=== PATIENT | female | born 1930 | race Caucasian/White ===

== ENCOUNTER 2016-11-07 16:00 | Emergency (ER) | payer MEDICARE ==
[~2016-11-07] VITALS: Ht 160 cm; Wt 63.6 kg
[~2016-11-07 16:00] MED LIST: AMLO-39 PO; AMLO2.5T2 PO; ASAEC PO; BENA40TA60 PO; CHOL200035 PO
[2016-11-07 16:17] VITALS: BP 138/76; PULSE 91; RESP 16; O2SAT 96
--- NOTE | 2016-11-07 16:29 | ED.REPORT ---
HPI-Extremity Problem Lower Date of Service Nov 07, 2016 ED Provider: Adarsh Ansari MD Patient is an 86 year old female with a history of hypertension and aortic stenosis who presents to the ED via EMS due to a fall. Associated symptoms include left ankle pain. The patient states that she was unable to bear weight on the leg or walk after the accident. She denies head pain, losing consciousness, neck pain or syncope. The patient states that she stepped off a stair wrong, twisted her ankle and then fell on top of the ankle. Per the patient's daughter, there was no "pop" heard or felt. Nursing Notes Stated Complaint: GLF Chief Complaint: Extremity Trauma Nursing Notes Reviewed: Yes Allergies: Coded Allergies: Penicillins (Verified Allergy, Unknown, RASH, 11/07/16) Sulfa (Sulfonamide Antibiotics) (Verified Allergy, Unknown, RASH, 11/07/16) ibuprofen (Verified Allergy, Unknown, POSSIBLY, 11/07/16) Scheduled AmLODIPine-Expunged Drug, Do Not Renew! (AmLODIPine-Expunged Drug, Do Not Renew! ) 2.5 Mg Tablet 2.5 MG PO DAILY AmLODIPine-Expunged Drug, Do Not Renew! (AmLODIPine-Expunged Drug, Do Not Renew! ) 5 Mg Tablet 5 MG PO DAILY Aspirin-Expunged Drug, Do Not Renew! (Aspirin EC-Expunged Drug, Do Not Renew!) 325 Mg Tablet 325 MG PO DAILY Benazepril-Expunged Drug, Do Not Renew! (Lotensin-Expunged Drug, Do Not Renew!) 40 Mg Tablet 40 MG PO DAILY CHOLECALCIFEROL-Expunged Drug, Do Not Renew! (VITAMIN D3-Expunged Drug, Do Not Renew!) 2,000 Unit Capsule 1,000 UNIT PO DAILY General Time Seen by MD: 16:28 Chief Complaint Ankle injury left Hx Obtained From: Patient Arrived By: Ambulance Onset Occurred: Just prior to arrival Symptom Duration: Since onset Caused by: Fall on ground Context: Occurred at: Home injury Location: : Ankle left Quality: Painful Severity: Current: Moderate Associated with: Reports: Unable to bear weight, Unable to walk, Denies: "Pop" felt or heard, Neck pain, Syncope Recent Healthcare: Recent doctor visit Similar Sx Previous: No Past Medical History Past Medical History aortic stenosis Reports: Hypertension Past Surgical History Denies Smoking History Unknown if Ever Smoker Social History Other Social History: Good social support Ambulatory Status Independent Review of Systems Review of Systems Note: +unable to bear weight Constitutional: Denies: Chills, Fever Musculoskeletal: Reports: Extremity pain (left ankle) Skin: Denies Itching, Denies Rash Neurologic: Reports: Problem walking, Denies: Headache, Numbness, Syncope, Weakness Complete sys rev & neg: except as marked. Respiratory: Denies: Non-productive cough, Shortness of breath Physical Exam Initial Vital Signs Vital Signs (First) Date Time Temp Pulse Resp B/P Pulse Ox O2 Delivery O2 Flow Rate FiO2 11/07/16 16:17 36.2 91 16 138/76 96 Room Air Initial VS: Reviewed Lower Extremity / Pelvis / MS: Atraumatic, Neurologic intact, Vascular intact tender left proximal fibula Ankle / Foot: Neurologic intact, Vascular intact normal sensation good dp pulses tender medial malleolus no obvious defomity no crepitus tender 5th metatarsal General/Constitutional: Awake, Alert Respiratory / Chest: Atraumatic, No respiratory distress Skin: Atraumatic, Color NL, No rash, Warm, Dry Neurologic: Oriented X3, Speech NL, No motor deficits, No sensory deficits Head / Eyes: Atraumatic, Normocephalic, PERRL, EOMI Upper Extremity / MS: Atraumatic, Inspection NL Psychiatric: Affect NL, Mood NL Interpretation & Diagnostics Lab Results Interpretation Test 11/07/16 17:30 Hold Purple Top Tube Received (Received) Hold Blue Top Tube Received (Received) Hold [place] Top Tube Received (Received) X-Ray Interpretation Xray Interpretation: IMPRESSION: No acute bony injury to the left foot. Dictated by: Abhijit Velázquez M.D. on 11/07/2016 at 17:15 Approved by: Abhijit Velázquez M.D. on 11/07/2016 at 17:15 X-Ray Ordered: Foot left Interpretation / Wet Read by: Interpret - Radiologist Xray Interpretation: IMPRESSION: Minimally displaced distal fibular spiral fracture at the level of the syndesmosis. Dictated by: Abhijit Velázquez M.D. on 11/07/2016 at 17:12 Approved by: Abhijit Velázquez M.D. on 11/07/2016 at 17:13 X-Ray Ordered: Tibia fibula left Interpretation / Wet Read by: Interpret - Radiologist Xray Interpretation: IMPRESSION: Minimally displaced distal fibular spiral fracture at the level of the syndesmosis, consistent with stage II supination-external rotation mechanism of injury. Dictated by: Abhijit Velázquez M.D. on 11/07/2016 at 17:13 Approved by: Abhijit Velázquez M.D. on 11/07/2016 at 17:14 X-Ray Ordered: Ankle left Interpretation / Wet Read by: Interpret - Radiologist Procedures Splint Application - Fx Mgt Time: 18:01 Procedure Performed by: Nurse Precise Anatomic Location: left ankle Type of Immobilization: Posterior short leg Definitive Fracture Care: Pain control, Splint Post-Procedure / Complications: Cap refill normal, Post splint vascular nl, Post splint neuro nl, Condition improved, Tolerated procedure well, Patient stable Re-Eval/Medical Decision Re-Evaluation/Progress #1: Time of Eval: 17:35 Re-Evaluation/Progress Note: Discussed X-ray results and plan for splint. Re-Evaluation/Progress #2: Time of Eval: 18:12 Re-Evaluation/Progress Note: Discussed plan for discharge. Patient understands and agrees to the plan. All questions were addressed. Counseled Regarding: Diagnosis, Lab results, Need for follow-up, When/why to return to ED Discharge & Departure Impression: Primary Impression: Left fibular fracture Encounter type: initial encounter Fibula location: distal Fracture type: closed Fracture morphology: unspecified fracture morphology Qualified Code: S82.832A - Other fracture of upper and lower end of left fibula, initial encounter for closed fracture Additional Impression: Fall from ground level Disposition: Home Discharge Condition All VS Reviewed: Yes Condition: Stable Patient Instructions: Splint Care (ED) Additional Instructions: Your X-rays showed a fracture in your left ankle. Keep the splint on until you follow up with Dr. Holden. It is okay to loosen it for comfort. You can take hydrocodone/APAP as needed for severe pain. You can take 1 or 2 every 4 hours. [address] not drink alcohol or drive while on the pain medication. Return to the emergency department if you develop any new or concerning symptoms . Referrals: Johnathon Holden MD (PCP) Jace Edgar Attestation Portions of this note were transcribed by Massiel Sauer. Dr. Coty Johnson personally performed the history, physical exam and medical decision-making; I reviewed and confirmed the accuracy of the information in the transcribed note. Signed by: Rolf Davis, 11/07/16 copies to: Johnathon Holden MD; Jace Edgar Kirk H MD Nov 07, 2016 16:29 Anat Sauer Nov 07, 2016 16:38 Adarsh Ansari MD Nov 07, 2016 16:29 Anat Sauer Nov 07, 2016 16:38
--- NOTE | 2016-11-07 17:15 | DRSVH ---
PROCEDURE: X-RAY LEFT TIBIA/FIBULA, TWO VIEWS ([id number]) INDICATIONS: 86 year-old female with left lower leg pain after fall. TECHNIQUE: 2 views of the tibia and fibula were acquired. COMPARISON: [facility], CR, XR ANKLE 3VW LT, 11/07/2016, 16:52. FINDINGS: Bones: Minimally displaced spiral fracture of the distal fibula is again noted. No suspicious lytic o r blastic bony lesions. Soft tissues: No suspicious soft tissue calcifications or masses. IMPRESSION: Minimally displaced distal fibular spiral fracture at the level of the syndesmosis. Dictated by: Abhijit Velázquez M.D. on 11/07/2016 at 17:12 Approved by: Abhijit Velázquez M.D. on 11/07/2016 at 17:13
--- NOTE | 2016-11-07 17:16 | DRSVH ---
PROCEDURE: X-RAY LEFT ANKLE, MINIMUM THREE VIEWS ([id number]) INDICATIONS: 86 year-old female with left ankle pain after fall. TECHNIQUE: 3 views of the ankle were acquired. COMPARISON: [facility], CR, ANKLE MIN 3VW (LT), 02/12/2011, 15:26. FINDINGS: Bones: There is minimally displaced spiral fracture of the distal fibula at the level of the syndesmo sis. Ankle mortise is normally aligned. No suspicious bony lesions. Soft tissues: No tibiotalar joint effusion. Achilles tendon appears normal. IMPRESSION: Minimally displaced distal fibular spiral fracture at the level of the syndesmosis, consi stent with stage II supination-external rotation mechanism of injury. Dictated by: Abhijit Velázquez M.D. on 11/07/2016 at 17:13 Approved by: Abhijit Velázquez M.D. on 11/07/2016 at 17:14
--- NOTE | 2016-11-07 17:17 | DRSVH ---
PROCEDURE: X-RAY LEFT FOOT COMPLETE, MINIMUM THREE VIEWS ([id number]) INDICATIONS: 86 year-old female with left foot pain after fall. TECHNIQUE: 3 views of the foot were acquired. COMPARISON: [facility], , BILATERAL FEET 3VW, 12/07/2007, 11:39. FINDINGS: Bones: No fractures or dislocations. No suspicious bony lesions. Soft tissues: No tibiotalar joint effusion. Achilles tendon appears normal. IMPRESSION: No acute bony injury to the left foot. Dictated by: Abhijit Velázquez M.D. on 11/07/2016 at 17:15 Approved by: Abhijit Velázquez M.D. on 11/07/2016 at 17:15
[2016-11-07] MEDS ORDERED: HYDROcodone-APAP 5-325 mg Tablet PO ONE (18:30)
[2016-11-07] MEDS ORDERED: HYDR-4003 PO (18:31)
[2016-11-07 19:34] VITALS: BP 163/85; PULSE 98; RESP 18; O2SAT 97
== END 2016-11-07 19:35 | disposition home or self-care (01) ==
LOC: EDUNIT# 16:00 → EDBD 16:00 → SED 16:00
DX: S82.832A Other fracture of upper and lower end of left fibula, initial encounter for closed fracture (principal); W18.39XA Other fall on same level, initial encounter; Y93.9 Activity, unspecified; Y92.009 Unspecified place in unspecified non-institutional (private) residence as the place of occurrence of the external cause; Y99.9 Unspecified external cause status; I10 Essential (primary) hypertension; Z88.0 Allergy status to penicillin; Z88.2 Allergy status to sulfonamides; Z88.6 Allergy status to analgesic agent